=== PATIENT | female | born 1995 | race Asian ===

== ENCOUNTER → 2020-12-06 | Day surgery (SDC) | payer BC ==
--- NOTE | 2020-12-06 12:13 | RAD REPORT ---
EXAM DESCRIPTION: US - Breast Core BX w/US Guidance - 12/06/2020 10:26 am CLINICAL HISTORY: ICD R 92.8 COMPARISON: November 10, 2020 ultrasound TECHNIQUE: The risks, benefits alternatives to the procedure were explained to the patient and infor med consent obtained. Skin and subcutaneous tissues anesthetized with lidocaine. Under sonographic guidance, three 14 gauge vacuum assisted core biopsies of the mass within the outer lower left breast obtained. 2 centimeter specimens taken. Tissue given to pathology. Subsequently a localizing clip was placed into the mass. Patient experienced no immediate complication IMPRESSION: Vacuum assisted core biopsies of the left breast mass
== END ==
LOC: DS 09:36
PROVIDERS: ATTEND Internal Medicine
DX: R92.8 Other abnormal and inconclusive findings on diagnostic imaging of breast (principal)
CPT/HCPCS: 19083; 88305